=== PATIENT | female | born 1995 | race Two or more races ===

== ENCOUNTER 2023-03-10 09:37 | Day surgery (SDC) | payer OTHER ==
[~2023-03-10] VITALS: Ht 160 cm; Wt 54.4 kg
[2023-03-10] MEDS ORDERED: fentaNYL citrate 0.05 MG/ML VIAL ONE (11:07)
[2023-03-10] MEDS ORDERED: MIDAZOLAM 2 MG/2 ML VIAL ONE (11:07)
[2023-03-10] MEDS ORDERED: LIDOCAINE 2% 100 MG/5 ML UJET TP ONE (11:07)
[2023-03-10] MEDS ORDERED: fentaNYL citrate 0.05 MG/ML VIAL IVP ONE (12:00)
== END 2023-03-10 12:20 | disposition home or self-care (01) ==
LOC: MDS 09:37 → MMU 09:40 → MDS 12:20
PROVIDERS: ATTEND Internal Medicine Gastroenterology
DX: R19.7 Diarrhea, unspecified (principal); K52.839 Microscopic colitis, unspecified
CPT/HCPCS: 45380; J3010; J2250